=== PATIENT | male | born 1945 | race Caucasian/White ===

== ENCOUNTER → 2023-12-06 07:33 | Outpatient (REF) | payer MEDICARE, MEDICAID, SELFPAY | LOC: HWCARD 07:33 | PROVIDERS: ATTENDING PHYSICIAN Internal Medicine | DX: Z01.818 Encounter for other preprocedural examination (principal) | CPT/HCPCS: 93005 ==

== ENCOUNTER → 2023-12-30 11:46 | Outpatient (REF) | payer MEDICARE, MEDICAID, SELFPAY | LOC: HWRAD 11:46 | PROVIDERS: ATTENDING PHYSICIAN Internal Medicine | DX: R05.1 Acute cough (principal) | CPT/HCPCS: 71046 ==

== ENCOUNTER 2024-02-01 06:11 | Day surgery (SDC) | payer MEDICARE, MEDICAID, SELFPAY ==
[2024-01-30 10:45] VITALS: BMI 23.9
[2024-02-01] VITALS (8 sets, daily range): BP systolic 89–153; BP diastolic 43–85; BMI 23.9
[2024-02-01] MEDS: NORMOSOL-R 1000 IV (11:35)
--- NOTE | 2024-02-01 14:58 | W.SUR.PREOP ---
Pre-Operative Surgical Note
-
I have examined this patient prior to the performance of the scheduled procedure.
The patient's condition is unchanged from the time of the current History and
Physical and the patient is able to undergo the scheduled procedure.
--- NOTE | 2024-02-01 15:52 | W.IMMPOSTOP ---
Surgical Immed Post Op Note
-
Primary Surgeon: LAYTON Cunha MD
Assisting Surgeon:
Pre-op Diagnosis: lesion of uncertain diagnosis, basal cell carcinoma
Post-op Diagnosis: same
Procedure Performed: lesion excision x 2; right sabianist and left shoulder
Anesthesia Type: General
Specimen / Cultures: right sabianist lesion, left shoulder lesion
Estimated Blood Loss: 3cc
Complications: none
Operative Findings: as expected
--- NOTE | 2024-02-01 15:52 | OR.RPT ---
Operative Report
Operative Report
date of surgery: 02/01/2024
Surgeon: LAYTON Cunha MD
Preoperative diagnosis: Neoplasm of uncertain behavior skin, atypical nevus, basal cell carcinoma
Postoperative diagnosis: Same
Procedure:
1. 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
2. Complex closure of right pentecostalism defect, 5.5 cm
3. Excision of atypical nevus of left shoulder 0.7 x 1.5 cm, 0.5 cm margins
4. Intermediate closure of left shoulder wound 4.5 cm
anesthesia: General
Complications: None
EBL: 3 cc
Specimens: Right pentecostalism lesion, left shoulder lesion
Indications for procedure: Patient is an 78-year-old male with developmental delay, full-time care, who presented with a large ulcerated lesion of the right pentecostalism as well as a pigmented lesion of the left shoulder. He was referred by dermatology
for excisional biopsies due to the need for anesthesia and the inability to perform this under local anesthesia. As such plan was made after obtaining cardiac clearance for surgical excision. Risks include recurrence, need for repeat procedure,
infection, scar, delayed wound healing. Consent was confirmed with his power of want ad supervisor.
Procedure in detail: Patient was identified preoperatively and the surgical site was confirmed to be the right pentecostalism and left shoulder. All questions were answered and consent was obtained by the power of want ad supervisor. Patient was then taken back to
the operating room placed supine on table. Anesthesia was induced and ET tube was placed. Preoperative antibiotics were confirmed and a timeout for patient safety was performed was confirmed that bilateral SCDs were in place. Procedure began with
the injection 1% lidocaine with epinephrine in the proposed surgical sites of the left shoulder and right pentecostalism. Left shoulder lesion was measured at 0.7 x 1.5 cm. An elliptical excision was drawn out with 5 mm margins in the event that the
lesion represented a melanoma in situ. 15 blade was used to incise the proposed markings and dissection was carried down into the subcutaneous tissues. The lesion was completely excised and hemostasis was ensured. Conservative undermining was
performed the bilateral skin flaps intermediate closure was performed using a series of Vicryl Monocryl sutures. Total closure length was 4.5 cm. Attention was then drawn to the right pentecostalism where 1.5 x 1.5 cm raised and ulcerated lesion was
marked out for excision. 5 mm margins were again marked out around this lesion to ensure clearance. 15 blade was used to incise the proposed markings and dissection was carried down to the subcutaneous tissues. Lesion was removed and sent for
pathology along the left shoulder lesion. Meticulous hemostasis was ensured and then a complex closure was performed with extensive undermining anteriorly into the skin of the upper brow and lateral cheek as well as posteriorly into the scalp. A
multiple layer closure was then performed using Vicryl Monocryl sutures. Steri-Strips were applied to both incisions thereafter. She tolerated the procedure well was performed out complication all counts were correct at the end the case. She was
extubated taken the PACU for further care.
== END 2024-02-01 17:45 | disposition home or self-care (01) ==
LOC: SDS 06:11
PROVIDERS: ATTENDING PHYSICIAN Surgery Plastic and Reconstructive Surgery
DX: D48.5 Neoplasm of uncertain behavior of skin (principal); C44.91 Basal cell carcinoma of skin, unspecified; L57.0 Actinic keratosis
CPT/HCPCS: 11646; 11602; 12031; 88307; 88341; 88342

== ENCOUNTER → 2024-02-24 10:10 | Outpatient (REF) | payer MEDICARE, MEDICAID, SELFPAY | LOC: HWRAD 10:10 | PROVIDERS: ATTENDING PHYSICIAN Internal Medicine | DX: R05.1 Acute cough (principal) | CPT/HCPCS: 71046 ==

== ENCOUNTER → 2024-03-01 08:25 | Outpatient (REF) | payer MEDICARE, MEDICAID, SELFPAY | LOC: RST 08:25 | PROVIDERS: ATTENDING PHYSICIAN Internal Medicine | DX: Z91.89 Other specified personal risk factors, not elsewhere classified (principal); J69.0 Pneumonitis due to inhalation of food and vomit | CPT/HCPCS: 74230; 92611 ==

== ENCOUNTER 2025-04-25 15:22 | Emergency (ER) | payer MEDICARE, MEDICAID, SELFPAY ==
[2025-04-25 15:25] VITALS: BP 112/95
[2025-04-25] MEDS: NSS 500 IV (16:52)
[2025-04-25] MEDS: ZOFRAN 4 MG IV (16:52)
[2025-04-25 17:21] LABS: ALT (SGPT) 16 U/L (0-50); AST (SGOT) 23 U/L (17-59); Albumin 4.0 g/dl (3.5-5.0); Alkaline Phosphatase 77 U/L (38-126); Calcium 9.5 mg/dl (8.4-10.2); Carbon Dioxide 30 mmol/L (22-30); Chloride 106 mmol/L (98-107); Glucose 111 mg/dl (70-99); Lipase 167 U/L (23-300); Potassium 4.5 mmol/L (3.5-5.1); Sodium 142 mmol/L (135-145); Total Protein 6.9 g/dl (6.3-8.2); eGFR > 60.00
[2025-04-25 17:24] LABS: COVID-19 Antigen Negative (Negative)
[2025-04-25] MEDS: VALIUM INJECTION 2 MG IV (17:25)
[2025-04-25 17:30] LABS: Hematocrit 37.7 % (39.0-52.0); Hemoglobin 12.8 g/dL (13.0-18.0); Mean Corp Hgb Conc. 34.0 g/dL (33.0-37.0); Mean Corpuscular Volume 94.0 fL (80.0-94.0); Nucleated Red Blood Cells % 0 % (-); Platelet Count 145 10^3/uL (130-400); Red Cell Dist. Width 13.3 % (11.5-14.5)
[2025-04-25 17:31] LABS: Blood Urea Nitrogen 24 mg/dl (9-20)
--- NOTE | 2025-04-25 18:15 | ED.GENMED ---
History of Present Illness
General
Chief Complaint: Abdominal Symptoms
Source: patient
Exam Limitations: none
Time Seen by Provider: 04/25/25 16:10
Nursing documentation reviewed up to this point in time: agreed with
History of Present Illness
History of Present Illness:
Patient is a nonverbal 80-year-old male with history of autism spectrum disorder, hypertension, hyperlipidemia, PE on Xarelto who presents to the emergency department intractable vomiting. Patient unable to contribute to history. One of the staff
members at his [facility] state that patient was on the way to an eye doctor appointment following lunch when he started vomiting. Apparently while at the appointment he was continuously vomiting prompting visit to the emergency department.
Patient seems to be at his baseline health this morning. He ate a normal lunch however vomiting seem to occur immediately following lunch. He seems to be urinating and having normal bowel movements. No recent productive cough or other viral
symptoms.
No other known sick contacts however one of the other residents at the [facility] did have influenza last week.
Past History
Past History
ED Past Medical History: HTN, Hypercholesterolemia, Seizures, Psychiatric (Mixed bi polar. Anxiety, ) and Other (MR, spina bifida, hydrocephalus with shunt, Autism, Tardive Dyskinesia, DVT, Eczema, IVC filter)
ED Past Surgical History: Cholecystectomy, Orthopedic (ORIF right hip) and Other (Hernia)
Social History
Tobacco: Non-smoker
Alcohol: None
Drug: None
Personal: Single
Living: assisted living (jail)
Employment: Not employed
Family History
Family History: Unable to obtain
Review of Systems
Review of Systems
Allergies reviewed?: Yes
All Other Systems: ROS reviewed and negative except as documented in HPI and ROS
Phy Exam
Physical Exam
Physical Exam:
Vitals: Patient's vital signs are stable. Afebrile
General: Patient is retching on my initial evaluation
Skin: Warm and dry, no rashes or lesions
Head: Normocephalic, atraumatic
Eyes: Sclera nonicteric. EOMs intact. No nystagmus.
Throat: Protecting airway
Neck: Normal ROM, no cervical spine tenderness, no meningismus
Cardiac: Regular rate and rhythm, no murmurs.
Pulm: Normal respiratory effort, lungs clear
Abdomen: Abdomen soft. No focal areas of tenderness
Extremities: Mild edema bilateral lower extremities. Palpable DP pulses bilaterally
Neuro: Alert. Nonverbal. Moving all extremities
Psychiatric: Normal affect.
Course
Orders/Labs/Results
Orders:
Orders
04/25/25 16:20
CT Abd/pelvis W Iv Cont Urgent
Comment: unable to tolerate PO
Reason For Exam: Intractbale nausea/vomiting
0.9% Sodium Chloride 500 ml [Nss] 500 ml IV BOLUS
Ondansetron Injectable [Zofran] 4 mg IV NOW STA
04/25/25 16:47
COVID-19 Antigen Urgent
Source: Nasal Swab
Complete Blood Count/With Diff Urgent
Comprehensive Metabolic Panel Urgent
Lactic Acid Q4H
Comment: CANCEL 2nd LACTIC ACID IF 1st LACTIC ACID IS LESS THAN 2
Lipase Urgent
Influenza A+B Rapid Molecular Urgent
LESLEY Source: Nasal Swab
Specimen Description:
04/25/25 17:22
diazePAM [Valium Injection] 2 mg IV NOW STA
04/25/25 19:05
Urinalysis Reflex To Culture Urgent
Date Specimen was Collected: 04/25/25
Time Specimen was Collected: 16:31
Urine Microscopic Reflex Cult Urgent
Urine Culture Urgent
LESLEY Source: U
Specimen Description:
Date Specimen was Collected: 04/25/25
Time Specimen was Collected: 16:31
04/25/25 21:29
Cephalexin Monohydrate [Keflex] 500 mg PO NOW STA
Abnormal Lab Results
04/25/25 04/25/25
16:47 19:05
RBC 4.01 L 10^6/uL
(4.70-6.10)
Hgb 12.8 L g/dL
(13.0-18.0)
Hct 37.7 L %
(39.0-52.0)
MCH 31.9 H pg
(27.0-31.0)
MPV 11.6 H fL
(7.4-10.4)
Monocytes % 10.4 H %
(1.7-9.3)
BUN 24 H mg/dl
(9-20)
Glucose 111 H mg/dl
(70-99)
Ur Occult Blood Reflex 1+ A
(Negative)
Leukocyte Esterase Rfl 2+ A
(Negative)
Urine RBC 3-6 A /HPF
(0-2)
Urine WBC (Reflex) 21-25 A /HPF
(0-5)
Urine Bacteria (Reflex) Many A
(Negative)
Urine Albumin (Reflex) 1+ A
(Neg - Trace)
04/25/25 16:47
04/25/25 16:47
Vital Signs
Initial and Last Documented VS:
Initial Vital Signs
Temp Pulse Resp BP Pulse Ox
98.9 F 80 16 112/95 99
04/25/25 15:25 04/25/25 15:25 04/25/25 15:25 04/25/25 15:25 04/25/25 15:25
Last Documented Vital Signs
Temp Pulse Resp BP Pulse Ox
98.9 F 82 18 112/95 97
04/25/25 15:25 04/25/25 21:51 04/25/25 21:51 04/25/25 15:04/25/25 21:51
MDM/Problems Addressed
Differential Diagnosis Includes:
Not limited to: Viral gastroenteritis, bowel obstruction, esophageal food bolus, biliary colic, cholecystitis, etc.
MDM/Problems Addressed:
80-year-old nonverbal ma with history of autism spectrum disorder presenting with intractable nausea/vomiting over the past few hours. He is unable to contribute to history. Symptoms did start after eating lunch per staff member of facility. No
history of recent fevers or known sick contacts.
Vitals and exam as above. He is actively retching on my initial evaluation. His abdomen is soft and appears nontender as he does not react to palpation. Cardio/pulmonary assessment unremarkable.
Differential very broad given lack of history. Will check labs, UA, viral studies. CT scan abdomen/pelvis with IV contrast as he is unable to tolerate PO. Will give IV fluids, Zofran, and reassess.
Update: labs relatively unremarkable. No leukocytosis. LFTs and lipase normal. CT scan shows evidence of gallstones without findings of acute cholecystitis. Viral studies are negative.
Patient was given a small dose of Valium as he became agitated in ED � he has been resting comfortably and has not had any additional episodes of vomiting since my initial evaluation. Work up thus far negative. It is possible that patient was
experiencing symptomatic cholelithiasis. Symptoms seem improved. Will straight cath for UA to ensure no associated UTI.
Update: UA is somewhat equivocal for infection. Will plan to cover patient with course of antibiotics pending culture. He otherwise is afebrile with benign abdominal exam. He is tolerating water without additional vomiting. Feel stable for discharge
back to [facility] with supportive care, strict return precautions.
Chronic conditions affecting care:
History of PE/DVT on Xarelto
Acute Exacerbation and/or Progression of Chronic Illness:
N/A
*Radiology
Radiology exam reviewed: radiology read reviewed
*Pulse Oximetry
SaO2: 99
Oxygen Mode of Delivery: Room air
Patient hypoxic: no
*EKG
Interpreted by ED Provider?: NA
*Enlisted Aircrew/Aerial Observer/Gunner Interpretation
Rate: Enlisted Aircrew/Aerial Observer/Gunner- N/A
*Critical Care Note
Total Time (30-74mins, 75-104mins- exclusive of procedures): Not Applicable
ED Attending Note
-
Portions of this chart may have been created with voice recognition software.� Occasional wrong word or��sound alike� substitutions may have occurred due to the inherent limitations of voice recognition software.
Discharge Plan
Departure
Patient Disposition: Home (Routine Discharge)
Date of Disposition: 04/25/25
Time of Disposition: 21:32
Patient with high blood pressure during this ER visit?: No
Condition: Good
Covid-19: Negative COVID-19
Discharge Problem:
Vomiting, UTI (urinary tract infection)
Instructions: Nausea and Vomiting, Adult (DC), Urinary tract infection in adults - ED (DC)
Prescriptions:
New
cephalexin 500 mg capsule
500 mg PO BID 5 Days Qty: 10 0RF
No Action
acetaminophen 325 MG tablet
650 mg PO Q4HPRN PRN (Reason: pain,fever,headache)
atorvastatin 20 MG tablet
20 mg PO DAILY
loperamide 2 MG capsule
2 mg PO Q4HPRN PRN (Reason: diarrhea)
carbamazepine 100 MG tablet,chewable
100 mg PO TID
magnesium hydroxide 30 ML suspension
30 ml PO DAILYPRN PRN (Reason: constipation) Qty: 0 0RF
Xarelto 10 MG tablet
10 mg PO QPM
ammonium lactate 12 % Lotion
1 applic TOPICAL DAILY
Rx Instructions:
feet
docusate sodium [DOK] 100 mg Tablet
200 mg PO HS
finasteride 5 mg Tablet
5 mg PO DAILY
mometasone 0.1 % Cream
1 applic TOPICAL BID PRN (Reason: rash)
zinc oxide [Diaper Rash] 40 % Ointment
1 applic TOPICAL BIDPRN PRN (Reason: dusitn area)
tamsulosin 0.4 mg Capsule
0.4 mg PO DAILY
Debrox 6.5 % Drops
2 drp EACH EAR [id number]
Patient Comments:
10/26/22-instill 2 drops in both ears bid for 3 days then decrease to the 5th, 6th, and 7th of each month
clonazepam 0.5 mg Tablet
0.5 mg PO DAILY Qty: 3 0RF
divalproex 125 mg capsule, delayed rel sprinkle
375 mg PO BID
Ensure Liquid
1 ea PO BID
amlodipine 2.5 mg Tablet
2.5 mg PO DAILY
Lubriderm Sensitive Skin Lotion
1 applic TOPICAL PRN PRN (Reason: dry skin)
omeprazole 20 mg Tablet,Delayed Release (Dr/Ec)
20 mg PO DAILY
Referrals:
Wilver Goss DO [Family Provider, Internal Medicine] - Follow up in 2-3 days
Chaim Blanca MD [Active, Surgical] - As needed
Activity Restrictions/Additional Instructions:
RETURN TO THE EMERGENCY DEPARTMENT IF PATIENT DISPLAYS ANY FEVER, CHILLS, RECURRENT VOMITING, INABILITY TOLERATE ORAL INTAKE, SEVERE ABDOMINAL PAIN, INABILITY URINATE, WORSENING IN CURRENT SYMPTOMS, OR ANY OTHER CONCERNS
- As discussed�lab work showed no acute abnormalities. A prescription for antibiotics is been sent to the pharmacy which you should take twice a day for the next 5 days to cover for a possible urinary tract infection.
- The CT scan shows gallstones however no evidence of acute infectious process. A name for a general surgeon has been provided if needed in the future.
- Please ensure that the patient stays well-hydrated. I would recommend a bland diet over the next few days. They can continue all other medications as prescribed.
- Follow-up with primary care early next week for further evaluation/management to ensure that symptoms are improving.
Monitor your symptoms closely and return to the emergency department with any acute worsening/new symptoms or any other concerns
Interventions
Interventions:
*Risk Screen - Suicide Last Done: 04/25/25 15:25
*General Assessment Last Done: 04/25/25 15:25
*Neglect/Abuse Screening Last Done: 04/25/25 15:25
*ED- Fall Risk Assessment Last Done: 04/25/25 20:24
*ED COVID-19 Vaccine History Last Done: 04/25/25 20:24
*Nursing Disposition Last Done: 04/25/25 22:23
TD-Wlcqeo-Mwxhgkhapf Assessment Last Done: 04/25/25 18:27
Discharge Date and Time
Discharge Date/Time: 04/25/25 22:24
Print Language: IRISH
[2025-04-25 19:34] LABS: Urine Character Cloudy (Clear)
[2025-04-25 21:04] LABS: Urine Squamous Cell >30 /LPF (Few); Urine White Cell 21-25 /HPF (0-5)
[2025-04-25] MEDS: KEFLEX 500 MG PO (21:42)
== END 2025-04-25 22:24 | disposition home or self-care (01) ==
LOC: EMR 15:22
PROVIDERS: Physician Assistant; EMERGENCY PHYSICIAN Emergency Medicine; FAMILY PHYSICIAN Internal Medicine
DX: N39.0 Urinary tract infection, site not specified (principal); R11.2 Nausea with vomiting, unspecified; F84.0 Autistic disorder; E78.00 Pure hypercholesterolemia, unspecified; I10 Essential (primary) hypertension; Z86.711 Personal history of pulmonary embolism; Z86.718 Personal history of other venous thrombosis and embolism; Z11.52 Encounter for screening for COVID-19
CPT/HCPCS: 96374; 96375; 96361; 99284; 74177; 80053; 81003; 81015; 83605; 83690; 85025; 87086; 87502; 87811; Q9967